=== PATIENT | male | born 1945 | race Caucasian/White ===

== ENCOUNTER 2024-05-14 09:59 | Outpatient (CLI) | payer MEDICARE, SELFPAY | END 2024-05-14 10:00 | disposition home or self-care (01) | LOC: INJ CL 10:04 | PROVIDERS: Visit Provider Family Medicine | DX: M54.16 Radiculopathy, lumbar region (principal); M48.062 Spinal stenosis, lumbar region with neurogenic claudication | CPT/HCPCS: 64483; J1100; Q9966 ==

== ENCOUNTER 2024-08-06 10:23 | Outpatient (CLI) | payer MEDICARE, SELFPAY | END 2024-08-06 10:24 | disposition home or self-care (01) | LOC: INJ CL 10:23 | PROVIDERS: Visit Provider Family Medicine | DX: M54.16 Radiculopathy, lumbar region (principal); M48.062 Spinal stenosis, lumbar region with neurogenic claudication | CPT/HCPCS: 64483; J1100; Q9966 ==